=== PATIENT | female | born 1995 | race Caucasian/White ===

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

== ENCOUNTER 2017-03-15 12:17 | Emergency (ER) | payer OTHER ==
[2017-03-15 13:44] LABS: ABS Basophils 0.1 10^3/ul (0-0.2); ABS Eosinophils 0.1 10^3/ul (0-0.6); ABS Lymphocytes 3.1 10^3/ul (1.0-4.8); ABS Monocytes 0.7 10^3/ul (0-0.8); ABS Neutrophils 6.5 10^3/ul (1.5-7.7); ABS Nucleated RBC 0 10^3/ul; Eosinophil % 0.5 % (0-6); Hematocrit 40 % (35-47); Hemoglobin 13.1 g/dl (12.0-16.0); Lymphocyte % 29.7 % (25-47); Mean Corpuscular HGB Conc 33 g/dl (31-36); Mean Corpuscular Hemoglobin 27 pg (27-31); Mean Corpuscular Volume 82 fL (80-97); Mean Platelet Volume 7 um3 (7.4-10.4); Nucleated Red Blood Cells % 0; Platelet Count 383 10^3/ul (150-450); Red Blood Count 4.88 10^6/ul (4.0-5.4); Red Cell Distribution Width 15 % (10.5-15); White Blood Count 10.4 10^3/ul (3.5-10.8)
[2017-03-15 13:58] LABS: Urine Appearance Clear; Urine Blood Negative (Negative); Urine Color Straw; Urine Ketones Negative (Negative); Urine Protein Negative (Negative); Urine Specific Gravity 1.004 (1.010-1.030); Urine Urobilinogen Negative (Negative)
[2017-03-15 14:04] LABS: EGFR Non-African American 118.3 (>60)
--- NOTE | 2017-03-15 14:50 | RAD ---
INDICATION: Chest pain. COMPARISON: Comparison is made with a prior chest x-ray study from September 25, 2016. TECHNIQUE: Dual-energy PA and lateral views of the chest were obtained. FINDINGS: The heart is within normal limits in size. Mediastinal and hilar contours appear within normal limits. The lungs are clear. No pleural effusion is present. IMPRESSION: NO EVIDENCE FOR ACTIVE CARDIOPULMONARY DISEASE.
[2017-03-15] MEDS ORDERED: Acetaminophen TAB* 325 MG PO ONE (16:06)
[2017-03-15 16:30] VITALS: BP 134/65
--- NOTE | 2017-03-16 10:28 | ED ---
Radha Chatman Gabriel scribed for Eb Feliciano MD on 03/15/17 at 1306 . HPI Chest Pain - HPI Summary HPI Summary: This patient is a 22 year old F presenting to [facility] accompanied by her mother with a chief complaint of CP that began a week ago and is worse today. The patient rates the sharp pain 5/10 in severity and located on the left side of her chest. Patient reports SOB and calf pain. The SOB is worse with exertion. The pain began while the patient was smoking an E cigarette. She is not on oral BC. - History of Current Complaint Chief Complaint: EDChestWallPain Time Seen by Provider: 03/15/17 12:54 Hx Obtained From: Patient Hx Last Menstrual Period: 09/15/16 Onset/Duration: Started Weeks Ago - 1, Still Present Timing: Constant Initial Severity: Mild Current Severity: Moderate Pain Intensity: 5 Pain Scale Used: 0-10 Numeric Chest Pain Location: Diffuse Chest Pain Radiates: No Aggravating Factor(s): Exertion Associated Signs and Symptoms: Positive: Chest Pain, Shortness of Breath, Calf Pain/Swelling - Allergy/Home Medications Allergies/Adverse Reactions: Allergies Allergy/AdvReac Type Severity Reaction Status Date / Time No Known Allergies Allergy Verified 09/19/16 12:06 PMH/Surg Hx/FS Hx/Imm Hx Endocrine/Hematology History: Denies: Hx Anticoagulant Therapy, Hx Diabetes Cardiovascular History: Denies: Hx Congenital Heart Disease, Hx Hypertension Respiratory History: Reports: Hx Pulmonary Embolism Denies: Hx Pleural Effusion GI History: Denies: Hx Crohn's Disease History: Denies: Hx Renal Disease Musculoskeletal History: Denies: Hx Gout, Hx Scoliosis Sensory History: Reports: Hx Contacts or Glasses Denies: Hx Hearing Aid Opthamlomology History: Reports: Hx Contacts or Glasses Neurological History: Denies: Hx Headaches Infectious Disease History: No Infectious Disease History: Denies: Traveled Outside the [place] in Last 30 Days - Family History Known Family History: Positive: Blood Disorder - blood clots Negative: Cardiac Disease, Hypertension, Diabetes - Social History Lives: With Family Alcohol Use: None Substance Use Type: Reports: None Smoking Status (MU): Former Smoker Type: Cigarettes Amount Used/How Often: 1/2 -1 ppd Length of Time of Smoking/Using Tobacco: since age 18 Have You Smoked in the Last Year: Yes Review of Systems Positive: Chest Pain Positive: Shortness Of Breath Positive: Other - LE pain All Other Systems Reviewed And Are Negative: Yes Physical Exam - Summary Physical Exam Summary: VITAL SIGNS: Reviewed. GENERAL: Patient is a well-developed and nourished female who is lying comfortable in the stretcher. Patient is not in any acute respiratory distress. HEAD AND FACE: No signs of trauma. No ecchymosis, hematomas or skull depressions. No sinus tenderness. EYES: PERRLA, EOMI x 2, No injected conjunctiva, no nystagmus. EARS: Hearing grossly intact. Ear canals and tympanic membranes are within normal limits. MOUTH: Oropharynx within normal limits. NECK: Supple, trachea is midline, no adenopathy, no JVD, no carotid bruit, no c- spine tenderness, neck with full ROM. CHEST: Symmetric, no tenderness at palpation LUNGS: Clear to auscultation bilaterally. No wheezing or crackles. CVS: Regular rate and rhythm, S1 and S2 present, no murmurs or gallops appreciated. ABDOMEN: Soft, non-tender. No signs of distention. No rebound no guarding, and no masses palpated. Bowel sounds are normal. EXTREMITIES: FROM in all major joints, no edema, no cyanosis or clubbing. NEURO: Alert and oriented x 3. No acute neurological deficits. Speech is normal and follows commands. SKIN: Dry and warm Triage Information Reviewed: Yes Vital Signs On Initial Exam: Initial Vitals Temp Pulse Resp BP Pulse Ox 97.6 F 101 20 131/84 99 03/15/17 12:18 03/15/17 12:18 03/15/17 12:18 03/15/17 12:18 03/15/17 12:18 Vital Signs Reviewed: Yes Diagnostics - Vital Signs Vital Signs Temp Pulse Resp BP Pulse Ox 03/15/17 12:18 97.6 F 101 20 131/84 99 - Laboratory Lab Results: Lab Results 03/15/17 03/15/17 03/15/17 Range/Units 13:18 13:18 13:18 WBC 10.4 (3.5-10.8) 10^3/ul RBC 4.88 (4.0-5.4) 10^6/ul Hgb 13.1 (12.0-16.0) g/dl Hct 40 (35-47) % MCV 82 (80-97) fL MCH 27 (27-31) pg MCHC 33 (31-36) g/dl RDW 15 (10.5-15) % Plt Count 383 (150-450) 10^3/ul MPV 7 L (7.4-10.4) um3 Neut % (Auto) 62.9 (38-83) % Lymph % (Auto) 29.7 (25-47) % Toole % (Auto) 6.4 (1-9) % Eos % (Auto) 0.5 (0-6) % Baso % (Auto) 0.5 (0-2) % Absolute Neuts (auto) 6.5 (1.5-7.7) 10^3/ul Absolute Lymphs (auto) 3.1 (1.0-4.8) 10^3/ul Absolute Monos (auto) 0.7 (0-0.8) 10^3/ul Absolute Eos (auto) 0.1 (0-0.6) 10^3/ul Absolute Basos (auto) 0.1 (0-0.2) 10^3/ul Absolute Nucleated RBC 0 10^3/ul Nucleated RBC % 0 D-Dimer, Quantitative (Less Than 230) ng/mL Sodium 136 (133-145) mmol/L Potassium 3.8 (3.5-5.0) mmol/L Chloride 104 (101-111) mmol/L Carbon Dioxide 25 (22-32) mmol/L Anion Gap 7 (2-11) mmol/L BUN 12 (6-24) mg/dL Creatinine 0.64 (0.51-0.95) mg/dL Est GFR ( Amer) 152.1 (>60) Est GFR (Non-Af Amer) 118.3 (>60) BUN/Creatinine Ratio 18.8 (8-20) Glucose 109 H (70-100) mg/dL Lactic Acid (0.5-2.0) mmol/L Calcium 9.6 (8.6-10.3) mg/dL Magnesium 1.9 (1.9-2.7) mg/dL Total Bilirubin 0.60 (0.2-1.0) mg/dL AST 21 (13-39) U/L ALT 19 (7-52) U/L Alkaline Phosphatase 78 (34-104) U/L Total Creatine Kinase 48 (10-223) U/L CK-MB (CK-2) 1.0 (0.6-6.3) ng/mL Troponin I 0.00 (<0.04) ng/mL B-Natriuretic Peptide 30 ( - 100) pg/mL Total Protein 6.9 (6.4-8.9) g/dL Albumin 4.0 (3.2-5.2) g/dL Globulin 2.9 (2-4) g/dL Albumin/Globulin Ratio 1.4 (1-3) TSH (0.34-5.60) mcIU/mL Thyroxine (T4) (6.09-12.23) mcg/mL Beta HCG, Quant 0.60 mIU/mL Urine Color Urine Appearance Urine pH (5-9) Ur Specific Omro (1.010-1.030) Urine Protein (Negative) Urine Ketones (Negative) Urine Blood (Negative) Urine Nitrate (Negative) Urine Bilirubin (Negative) Urine Urobilinogen (Negative) Ur Leukocyte Esterase (Negative) Urine Glucose (Negative) 03/15/17 03/15/17 03/15/17 Range/Units 13:18 13:18 13:44 WBC (3.5-10.8) 10^3/ul RBC (4.0-5.4) 10^6/ul Hgb (12.0-16.0) g/dl Hct (35-47) % MCV (80-97) fL MCH (27-31) pg MCHC (31-36) g/dl RDW (10.5-15) % Plt Count (150-450) 10^3/ul MPV (7.4-10.4) um3 Neut % (Auto) (38-83) % Lymph % (Auto) (25-47) % Toole % (Auto) (1-9) % Eos % (Auto) (0-6) % Baso % (Auto) (0-2) % Absolute Neuts (auto) (1.5-7.7) 10^3/ul Absolute Lymphs (auto) (1.0-4.8) 10^3/ul Absolute Monos (auto) (0-0.8) 10^3/ul Absolute Eos (auto) (0-0.6) 10^3/ul Absolute Basos (auto) (0-0.2) 10^3/ul Absolute Nucleated RBC 10^3/ul Nucleated RBC % D-Dimer, Quantitative < 200 (Less Than 230) ng/mL Sodium (133-145) mmol/L Potassium (3.5-5.0) mmol/L Chloride (101-111) mmol/L Carbon Dioxide (22-32) mmol/L Anion Gap (2-11) mmol/L BUN (6-24) mg/dL Creatinine (0.51-0.95) mg/dL Est GFR ( Amer) (>60) Est GFR (Non-Af Amer) (>60) BUN/Creatinine Ratio (8-20) Glucose (70-100) mg/dL Lactic Acid 0.9 (0.5-2.0) mmol/L Calcium (8.6-10.3) mg/dL Magnesium (1.9-2.7) mg/dL Total Bilirubin (0.2-1.0) mg/dL AST (13-39) U/L ALT (7-52) U/L Alkaline Phosphatase (34-104) U/L Total Creatine Kinase (10-223) U/L CK-MB (CK-2) (0.6-6.3) ng/mL Troponin I (<0.04) ng/mL B-Natriuretic Peptide ( - 100) pg/mL Total Protein (6.4-8.9) g/dL Albumin (3.2-5.2) g/dL Globulin (2-4) g/dL Albumin/Globulin Ratio (1-3) TSH 1.64 (0.34-5.60) mcIU/mL Thyroxine (T4) 6.60 (6.09-12.23) mcg/mL Beta HCG, Quant mIU/mL Urine Color Urine Appearance Urine pH (5-9) Ur Specific Omro (1.010-1.030) Urine Protein (Negative) Urine Ketones (Negative) Urine Blood (Negative) Urine Nitrate (Negative) Urine Bilirubin (Negative) Urine Urobilinogen (Negative) Ur Leukocyte Esterase (Negative) Urine Glucose (Negative) 03/15/17 Range/Units 13:46 WBC (3.5-10.8) 10^3/ul RBC (4.0-5.4) 10^6/ul Hgb (12.0-16.0) g/dl Hct (35-47) % MCV (80-97) fL MCH (27-31) pg MCHC (31-36) g/dl RDW (10.5-15) % Plt Count (150-450) 10^3/ul MPV (7.4-10.4) um3 Neut % (Auto) (38-83) % Lymph % (Auto) (25-47) % Toole % (Auto) (1-9) % Eos % (Auto) (0-6) % Baso % (Auto) (0-2) % Absolute Neuts (auto) (1.5-7.7) 10^3/ul Absolute Lymphs (auto) (1.0-4.8) 10^3/ul Absolute Monos (auto) (0-0.8) 10^3/ul Absolute Eos (auto) (0-0.6) 10^3/ul Absolute Basos (auto) (0-0.2) 10^3/ul Absolute Nucleated RBC 10^3/ul Nucleated RBC % D-Dimer, Quantitative (Less Than 230) ng/mL Sodium (133-145) mmol/L Potassium (3.5-5.0) mmol/L Chloride (101-111) mmol/L Carbon Dioxide (22-32) mmol/L Anion Gap (2-11) mmol/L BUN (6-24) mg/dL Creatinine (0.51-0.95) mg/dL Est GFR ( Amer) (>60) Est GFR (Non-Af Amer) (>60) BUN/Creatinine Ratio (8-20) Glucose (70-100) mg/dL Lactic Acid (0.5-2.0) mmol/L Calcium (8.6-10.3) mg/dL Magnesium (1.9-2.7) mg/dL Total Bilirubin (0.2-1.0) mg/dL AST (13-39) U/L ALT (7-52) U/L Alkaline Phosphatase (34-104) U/L Total Creatine Kinase (10-223) U/L CK-MB (CK-2) (0.6-6.3) ng/mL Troponin I (<0.04) ng/mL B-Natriuretic Peptide ( - 100) pg/mL Total Protein (6.4-8.9) g/dL Albumin (3.2-5.2) g/dL Globulin (2-4) g/dL Albumin/Globulin Ratio (1-3) TSH (0.34-5.60) mcIU/mL Thyroxine (T4) (6.09-12.23) mcg/mL Beta HCG, Quant mIU/mL Urine Color Straw Urine Appearance Clear Urine pH 7.0 (5-9) Ur Specific Omro 1.004 L (1.010-1.030) Urine Protein Negative (Negative) Urine Ketones Negative (Negative) Urine Blood Negative (Negative) Urine Nitrate Negative (Negative) Urine Bilirubin Negative (Negative) Urine Urobilinogen Negative (Negative) Ur Leukocyte Esterase Negative (Negative) Urine Glucose Negative (Negative) Result Diagrams: 03/15/17 13:18 03/15/17 13:18 Lab Statement: Any lab studies that have been ordered have been reviewed, and results considered in the medical decision making process. - Radiology CXR Radiology Interpretation Completed By: Radiologist - NO EVIDENCE FOR ACTIVE CARDIOPULMONARY DISEASE. ED physician has reviewed this radiology report. - EKG 12:25 Cardiac Rate: NL EKG Rhythm: Sinus Rhythm - at 80BPM EKG Interpretation: normal axis, no ST elevations Re-Evaluation - Re-Evaluation First Eval Re-Evaluation Time: 16:09 Change: Improved Comment: The patient is feeling better and reports no chest pain. Chest Pain Course/Dx - Course Assessment/Plan: This patient is a 22 year old F presenting to [facility] accompanied by her mother with a chief complaint of CP that began a week ago and is worse today. The patient rates the sharp pain 5/10 in severity and located on the left side of her chest. Patient reports SOB and calf pain. The SOB is worse with exertion. The pain began while the patient was smoking an E cigarette. She is not on oral BC. Test results with no significant abnormalities. UA negative for UTI and d dimer is negative for an acute PE. The patient was given Tylenol and the symptoms resolved. The patient has history of PE and the patient is taking Xarelto therefore I believe she has atypical chest pain. Patient was observed for 4 hours and symptoms did not return so she will be discharged. Patient is hemodynamically stable and alert and oriented x3 - Chest Pain Differential Diagnosis/HQI/PQRI: Acute NH, ACS, Angina, CHF, Chest Wall, GI Disease, Lower Respiratory Infection, Pulmonary Edema - Diagnoses Provider Diagnoses: Atypical chest pain Discharge - Discharge Plan Condition: Stable Disposition: HOME Patient Education Materials: Chest Wall Pain (ED) Referrals: Amy Woody RN [Primary Care Provider] - 4 Days Additional Instructions: RETURN TO EMERGENCY DEPARTMENT FOR ANY NEW OR WORSENING SYMPTOMS The documentation as recorded by the Radha mike Gabriel accurately reflects the service I personally performed and the decisions made by , Eb Feliciano MD.
== END 2017-03-15 16:30 | disposition home or self-care (01) ==
LOC: ED 12:17
DX: R07.89 Other chest pain (principal); F17.210 Nicotine dependence, cigarettes, uncomplicated; F17.290 Nicotine dependence, other tobacco product, uncomplicated; Z86.711 Personal history of pulmonary embolism; Z79.01 Long term (current) use of anticoagulants
CPT/HCPCS: 36415; 71046; 80053; 81003; 82550; 82553; 83605; 83735; 83880; 84436; 84443; 84484; 84702; 85025; 85379; 93005; 99282; A9270-GY

== ENCOUNTER 2017-09-08 11:56 | Emergency (ER) | payer OTHER ==
[2017-09-08 12:52] LABS: ABS Basophils 0 10^3/ul (0-0.2); ABS Eosinophils 0 10^3/ul (0-0.6); ABS Lymphocytes 2.8 10^3/ul (1.0-4.8); ABS Monocytes 0.6 10^3/ul (0-0.8); ABS Neutrophils 5.9 10^3/ul (1.5-7.7); ABS Nucleated RBC 0 10^3/ul; Eosinophil % 0.3 % (0-6); Hematocrit 42 % (35-47); Hemoglobin 13.8 g/dl (12.0-16.0); Lymphocyte % 30.3 % (25-47); Mean Corpuscular HGB Conc 33 g/dl (31-36); Mean Corpuscular Hemoglobin 27 pg (27-31); Mean Corpuscular Volume 82 fL (80-97); Mean Platelet Volume 7.3 um3 (7.4-10.4); Nucleated Red Blood Cells % 0; Platelet Count 449 10^3/ul (150-450); Red Blood Count 5.12 10^6/ul (4.00-5.40); Red Cell Distribution Width 14 % (10.5-15); White Blood Count 9.4 10^3/ul (3.5-10.8)
--- NOTE | 2017-09-08 13:32 | ED ---
HPI Chest Pain - HPI Summary HPI Summary: This is rashid Zamarripa documenting for Dr. Eb Feliciano MD. Pt is a 22 y/o F who presents to ED c/o SOB and chest pain. The chest pain started approximately 6 months ago which is when she first visited the ED. The pain has not gone away and has been intermittent, as well as the SOB. Right now she is not in any pain, but at triage she rated her pain a 5/10 in severity. The pain is present on the left side of chest. Lying on either side exacerbates the pain per nurses report. 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 Denies nausea/vomiting and palpitations. Notes an irregular menstrual cycle, with LNMP 1.5 months ago. No possibility of , took a test yesterday. Pt has been off her medications for her pulmonary embolism for 3 months. Does not smoke. - History of Current Complaint Chief Complaint: EDChestPainROMI Time Seen by Provider: 09/08/17 12:38 Hx Obtained From: Patient Onset/Duration: Started Weeks Ago Timing: Intermittent Current Severity: Moderate Pain Intensity: 5 Pain Scale Used: 0-10 Numeric Aggravating Factor(s): Position - Lying on either side Associated Signs and Symptoms: Positive: Chest Pain, Shortness of Breath - Allergy/Home Medications Allergies/Adverse Reactions: Allergies Allergy/AdvReac Type Severity Reaction Status Date / Time No Known Allergies Allergy Verified 09/08/17 11:59 Home Medications: Home Medications Ergocalciferol (Vitamin D2) [Vitamin D2] 1 cap PO DAILY 09/08/17 [History Confirmed 09/08/17] PMH/Surg Hx/FS Hx/Imm Hx Endocrine/Hematology History: Denies: Hx Anticoagulant Therapy, Hx Diabetes Cardiovascular History: Denies: Hx Congenital Heart Disease, Hx Hypertension Respiratory History: Reports: Hx Pulmonary Embolism Denies: Hx Pleural Effusion GI History: Denies: Hx Crohn's Disease History: Denies: Hx Renal Disease Musculoskeletal History: Denies: Hx Gout, Hx Scoliosis Sensory History: Reports: Hx Contacts or Glasses Denies: Hx Hearing Aid Opthamlomology History: Reports: Hx Contacts or Glasses Neurological History: Denies: Hx Headaches Infectious Disease History: No Infectious Disease History: Denies: Traveled Outside the [place] in Last 30 Days - Family History Known Family History: Positive: Blood Disorder - blood clots Negative: Cardiac Disease, Hypertension, Diabetes - Social History Alcohol Use: None Substance Use Type: Reports: None Smoking Status (MU): Former Smoker Type: Cigarettes Amount Used/How Often: 1/2 -1 ppd Length of Time of Smoking/Using Tobacco: since age 18 Have You Smoked in the Last Year: Yes Review of Systems Positive: Chest Pain. Negative: Palpitations Positive: Shortness Of Breath Negative: Vomiting, Nausea All Other Systems Reviewed And Are Negative: Yes Physical Exam - Summary Physical Exam Summary: VITAL SIGNS: Reviewed. GENERAL: Patient is a well-developed and nourished female who is lying comfortable in the stretcher. Patient is not in any acute respiratory distress. HEAD AND FACE: No signs of trauma. No ecchymosis, hematomas or skull depressions. No sinus tenderness. EYES: PERRLA, EOMI x 2, No injected conjunctiva, no nystagmus. EARS: Hearing grossly intact. Ear canals and tympanic membranes are within normal limits. MOUTH: Oropharynx within normal limits. NECK: Supple, trachea is midline, no adenopathy, no JVD, no carotid bruit, no c- spine tenderness, neck with full ROM. CHEST: Symmetric. Left side chest pain that's reproducible. LUNGS: Clear to auscultation bilaterally. No wheezing or crackles. CVS: Regular rate and rhythm, S1 and S2 present, no murmurs or gallops appreciated. ABDOMEN: Soft, non-tender. No signs of distention. No rebound no guarding, and no masses palpated. Bowel sounds are normal. EXTREMITIES: FROM in all major joints, no edema, no cyanosis or clubbing. NEURO: Alert and oriented x 3. No acute neurological deficits. Speech is normal and follows commands. SKIN: Dry and warm Triage Information Reviewed: Yes Vital Signs On Initial Exam: Initial Vitals Temp Pulse Resp BP Pulse Ox 97.6 F 97 14 120/82 97 09/08/17 12:00 09/08/17 12:00 09/08/17 12:00 09/08/17 12:00 09/08/17 12:00 Vital Signs Reviewed: Yes Diagnostics - Vital Signs Vital Signs Temp Pulse Resp BP Pulse Ox 09/08/17 13:10 78 20 133/83 97 09/08/17 13:00 87 14 97 09/08/17 12:50 98 09/08/17 12:39 74 21 96 09/08/17 12:00 97.6 F 97 14 120/82 97 - Laboratory Lab Results: Lab Results 09/08/17 09/08/17 09/08/17 Range/Units 12:47 12:47 12:47 WBC 9.4 (3.5-10.8) 10^3/ul RBC 5.12 (4.00-5.40) 10^6/ul Hgb 13.8 (12.0-16.0) g/dl Hct 42 (35-47) % MCV 82 (80-97) fL MCH 27 (27-31) pg MCHC 33 (31-36) g/dl RDW 14 (10.5-15) % Plt Count 449 (150-450) 10^3/ul MPV 7.3 L (7.4-10.4) um3 Neut % (Auto) 62.5 (38-83) % Lymph % (Auto) 30.3 (25-47) % Cameron % (Auto) 6.5 (0-7) % Eos % (Auto) 0.3 (0-6) % Baso % (Auto) 0.4 (0-2) % Absolute Neuts (auto) 5.9 (1.5-7.7) 10^3/ul Absolute Lymphs (auto) 2.8 (1.0-4.8) 10^3/ul Absolute Monos (auto) 0.6 (0-0.8) 10^3/ul Absolute Eos (auto) 0 (0-0.6) 10^3/ul Absolute Basos (auto) 0 (0-0.2) 10^3/ul Absolute Nucleated RBC 0 10^3/ul Nucleated RBC % 0 APTT 36.7 H (26.0-36.3) seconds D-Dimer, Quantitative < 200 (Less Than 230) ng/mL Sodium 137 (135-145) mmol/L Potassium 4.0 (3.5-5.0) mmol/L Chloride 104 (101-111) mmol/L Carbon Dioxide 27 (22-32) mmol/L Anion Gap 6 (2-11) mmol/L BUN 10 (6-24) mg/dL Creatinine 0.76 (0.51-0.95) mg/dL Est GFR ( Amer) 117.4 (>60) Est GFR (Non-Af Amer) 97.0 (>60) BUN/Creatinine Ratio 13.2 (8-20) Glucose 89 (70-100) mg/dL Calcium 9.8 (8.6-10.3) mg/dL Total Bilirubin 0.80 (0.2-1.0) mg/dL AST 20 (13-39) U/L ALT 19 (7-52) U/L Alkaline Phosphatase 101 (34-104) U/L Total Creatine Kinase 50 (10-223) U/L CK-MB (CK-2) 0.7 (0.6-6.3) ng/mL Troponin I 0.00 (<0.04) ng/mL B-Natriuretic Peptide ( - 100) pg/mL Total Protein 7.8 (6.4-8.9) g/dL Albumin 4.5 (3.2-5.2) g/dL Globulin 3.3 (2-4) g/dL Albumin/Globulin Ratio 1.4 (1-3) TSH Pending Beta HCG, Quant < 0.60 mIU/mL 09/08/17 Range/Units 12:47 WBC (3.5-10.8) 10^3/ul RBC (4.00-5.40) 10^6/ul Hgb (12.0-16.0) g/dl Hct (35-47) % MCV (80-97) fL MCH (27-31) pg MCHC (31-36) g/dl RDW (10.5-15) % Plt Count (150-450) 10^3/ul MPV (7.4-10.4) um3 Neut % (Auto) (38-83) % Lymph % (Auto) (25-47) % Cameron % (Auto) (0-7) % Eos % (Auto) (0-6) % Baso % (Auto) (0-2) % Absolute Neuts (auto) (1.5-7.7) 10^3/ul Absolute Lymphs (auto) (1.0-4.8) 10^3/ul Absolute Monos (auto) (0-0.8) 10^3/ul Absolute Eos (auto) (0-0.6) 10^3/ul Absolute Basos (auto) (0-0.2) 10^3/ul Absolute Nucleated RBC 10^3/ul Nucleated RBC % APTT (26.0-36.3) seconds D-Dimer, Quantitative (Less Than 230) ng/mL Sodium (135-145) mmol/L Potassium (3.5-5.0) mmol/L Chloride (101-111) mmol/L Carbon Dioxide (22-32) mmol/L Anion Gap (2-11) mmol/L BUN (6-24) mg/dL Creatinine (0.51-0.95) mg/dL Est GFR ( Amer) (>60) Est GFR (Non-Af Amer) (>60) BUN/Creatinine Ratio (8-20) Glucose (70-100) mg/dL Calcium (8.6-10.3) mg/dL Total Bilirubin (0.2-1.0) mg/dL AST (13-39) U/L ALT (7-52) U/L Alkaline Phosphatase (34-104) U/L Total Creatine Kinase (10-223) U/L CK-MB (CK-2) (0.6-6.3) ng/mL Troponin I (<0.04) ng/mL B-Natriuretic Peptide 20 ( - 100) pg/mL Total Protein (6.4-8.9) g/dL Albumin (3.2-5.2) g/dL Globulin (2-4) g/dL Albumin/Globulin Ratio (1-3) TSH Beta HCG, Quant mIU/mL Result Diagrams: 09/08/17 12:47 09/08/17 12:47 Lab Statement: Any lab studies that have been ordered have been reviewed, and results considered in the medical decision making process. - Radiology CXR Radiology Interpretation Completed By: Radiologist - 12:38. IMPRESSION:No evidence for acute intrathoracic disease. ED Physician reviewed this report. - EKG 12:48 Cardiac Rate: NL - 79 bpm EKG Rhythm: Sinus Rhythm EKG Interpretation: Normal axis, No ST elevation EKG Comparison: No Significant Change - Similar to EKG done on 03/15/17 Chest Pain Course/Dx - Course Assessment/Plan: This patient is a 22-year-old female with past medical history significant for PE presents to the emergency department with a chief complaint of having chest pain and shortness of breath since February. The pain is sharp, reproducible to palpation during the physical exam. In the ED course the patients symptoms are not severe she was only 1 out of 10 at palpation. She denies any shortness of breath,. Physical sounds without any significant abnormality. D-dimer is less than 200, troponin 0.00. The patient declined anything for pain since the pain is resolved. Chest x-ray impression: No acute cuddy thoracic pathology. EKG shows a sinus rhythm with no ST elevations. Since the d-dimer is negative, she is not hypoxic, and she is not tachycardic have no suspicion for a PE. I do not suspect patient has acute coronary syndrome since the troponin is also negative and the EKG shows last elevations. The etiology for the chest pain is unclear however I believe the patient has musculoskeletal pain. Therefore the patient will be discharged home with follow -up with primary care physician. Patient is hemodynamically stable alert and oriented 3. - Diagnoses Provider Diagnoses: Atypical chest pain Discharge - Sign-Out/Discharge Documenting (check all that apply): Patient Departure - Discharge - Discharge Plan Condition: Stable Disposition: HOME Prescriptions: Naproxen [Naproxen 500 mg tab] 500 mg PO BID PRN #30 tablet PRN Reason: Pain Patient Education Materials: Chest Pain (ED) Referrals: Tiburcio MYERSP,Amy [Primary Care Provider] - 3 Days Additional Instructions: RETURN TO ED FOR ANY NEW OR WORSENING SYMPTOMS.
--- NOTE | 2017-09-08 14:17 | RAD ---
Indication: Chest pain. Shortness of breath. Comparison: March 15, 2017 Technique: Upright AP 1320 hours Report: Clear lungs and pleural spaces. Negative for pneumothorax. The heart, pulmonary vasculature, and mediastinal contours are unremarkable. Unremarkable osseous structures and soft tissue contours. IMPRESSION: #. No evidence for acute intrathoracic disease.
[2017-09-08 14:26] VITALS: BP 123/104
== END 2017-09-08 14:25 | disposition home or self-care (01) ==
LOC: ED 11:56
DX: R07.89 Other chest pain (principal); R06.02 Shortness of breath; Z87.891 Personal history of nicotine dependence
CPT/HCPCS: 36415; 71045; 80053; 82550; 82553; 83880; 84443; 84484; 84702; 85025; 85379; 85730; 93005; 99283

== ENCOUNTER 2018-01-27 10:46 | Emergency (ER) | payer OTHER ==
--- OUTSIDE RECORDS SUMMARY | 2018-01-27 10:51 | XMS REPORT | Continuity of Care Document ---
:1995 External Reference #:[id number] Author Name Jennifer Lopes Care Team Providers Name Role Phone Angela Solis NP Primary Care Physician Unavailable Payers Type Date Identification Numbers Payment Provider Subscriber Effective: 2010 Policy Number: [id number] [facility] Iza Byrd PayID: [id number] [address] [place] [address] Effective: 2010 Policy Number: [id number] Medicaid ID Iza [place] PayID: [id number] [address] [place] [address] Advance Directives Description No Information Available Problems Description No Active Problems Family History Date Family Member(s) Problem(s) Comments Father due to Liver Disease () Father due to Alcoholism () Mother A&W Paternal Grandfather due to Cancer () Maternal Grandfather due to Melanoma () Social History Type Date Description Comments Sex Unknown Education Highest level completed, 12th grade Marital Status Single Lives With Mother Cigarette Use Former Cigarette Smoker quit in 2017 ETOH Use Does Not Drink Alcohol Recreational Drug Use Does Not Use Drugs Tobacco Use Start: Unknown Patient has never smoked Exercise Type/Frequency Exercises sporadically Seat Belt/Car Seat Always uses seat belt Currently Active Patient is currently sexually active STD's No STD History Allergies, Adverse Reactions, Alerts Description No Known Drug Allergies Medications Medication Date Status Form Strength Qnty SIG Indications Ordering Provider Enoxaparin Sodium 01/14 Active Solution 40mg/0.4M 60syr inject Phael L obie 0.4ml MD Radha sq daily Active Tablets 1 by Unknown /0000 mouth every day Effexor XR Active Caps ER 75mg 1 by Unknown /0000 24HR mouth every day at night No Active 08/30 Hx Unknown Medications /2014 - 08/30 Medroxyprogesterone 08/30 Hx Suspension 150mg/ml 1unit for use Jett ARomulo ayan steeleu Iraj Robison MRowdy 12/23 to office for injecti on. Escitalopram Oxalate 00/00 Hx Tablets 10mg Unknown /0000 - 12/23 Immunizations CPT Code Status Date Vaccine Lot # [id number] Given 12/17/2017 Influenza Vaccine Quadrivalent Preser/Antibiotic [id number] Free Im Use Vital Signs Date Vital Result Comment 12/17/2017 1:22pm BP Systolic 122 mmHg BP Diastolic 70 mmHg Height 64.5 inches 5'4.50" Weight 232.00 lb BMI (Body Mass Index) 39.2 kg/m2 1 Parity 0 01/04/2016 3:07pm BP Systolic 124 mmHg BP Diastolic 70 mmHg Height 64.5 inches 5'4.50" Weight 204.00 lb BMI (Body Mass Index) 34.5 kg/m2 0 Parity 0 08/30/2014 1:31pm BP Systolic 102 mmHg BP Diastolic 76 mmHg Height 64.5 inches 5'4.50" Weight 165.00 lb BMI (Body Mass Index) 27.9 kg/m2 Last Menstrual Period 1237196 0 Parity 0 Results Test Date Facility Test Result H/L Range Note Cardiolipin AB 12/23/2017 [facility] Cardiolipin AB (Iga) <11 APL <=11 1 Igg,Iga,Igm Cardiolipin AB (Igg) <14 GPL <=14 2 Cardiolipin AB (Igm) <12 MPL <=12 3 Factor V Leiden Mutation 12/23/2017 [facility] Factor V (Leiden) Mutation see note 4 Interpretation see note 5 Reviewer see note 6 Prothrombin Factor II 12/23/2017 [facility] Prothrombin Gene Analysis see note 7 26630S>A Mut Nidia Interpretation see note 8 Reviewer see note 9 MTHFR,Dna Mutation 12/23/2017 [facility] MTHFR,Dna Mutation see note Abnormal 10 Analysis Interpretation see note 11 Reviewer see note 12 Lupus Anticoag 12/23/2017 [facility] Lupus Anticoagulant see note 13 W/RFX,Atiii,Protein C&S PTT-LA Screen 42 sec High <=40 DRVVT Screen 48 sec High <=45 DRVVT Mix Interpretation see note 14 Antithrombin III Activity 91 %activity 80-120 Protein C,Activity SEE NOTE 15 Protein S,Activity 58 % Low 60-140 16 Laboratory test finding 12/23/2017 [facility] Hexagonal Phase Negative Negative Confirm (Reflex) DRVVT Confirmation (Reflex) Positive Abnormal Negative DRVVT 1:1 Mix CORRECTED Corrected PNL No 12/19/2017 [facility] Rubella Screen [place] [address] [phone] Hemoglobin A1c 5.7 % High 4.0-5.6 17 Hepatitis B Surface Ag Nonreactive Nonreactive 18 Syphillis Igg W/Reflex RPR Nonreactive Nonreactive 19 CBC With No 12/19/2017 [facility] White Blood 12.9 10^3/uL High 3.5-10.8 [place] [address] Count [phone] Red Blood Count 4.90 10^6/uL N 4.00-5.40 Hemoglobin 13.1 g/dL N 12.0-16.0 Hematocrit 40 % N 35-47 Mean Corpuscular Volume 82 fL N 80-97 Mean Corpuscular Hemoglobin 27 pg N 27-31 Mean Corpuscular HGB Conc 33 g/dL N 31-36 Red Cell Distribution Width 14 % N 10.5-15 Platelet Count 417 10^3/uL N 150-450 Mean Platelet Volume 7.4 um3 N 7.4-10.4 Type And Screen 12/19/2017 [facility] Patient [place] [address] [phone] Antibody Screen NEGATIVE HIV 1/2 AB 12/19/2017 [facility] HIV 1 2 Nonreactive Nonreactive 20 [place] [address] Antibody [phone] Lead 12/19/2017 [facility] Lead,Venous, < 1.0 g/dL 0.0-4.9 21 [place] [address] B [phone] Venous/Capillary Venous Submitting Laboratory Phone [phone] Laboratory test 12/19/2017 [facility] TSH 1.11 mcIU/mL N 0.34- 5.60 [place] [address] [phone] T4 Free 0.79 ng/dL N 0.61-1.12 Toxoplasma Igg 12/19/2017 [facility] Toxoplasma Positive Abnormal Negative & [place] [address] IgG Antibody [phone] Toxoplasma IgG Antibody Index 101 IU/mL 23 Toxoplasma IgM Antibody Negative Negative 24 Urine Culture And 12/17/2017 [facility] Urine Culture SEE RESULT 25 [place] [address] BELOW [phone] 1 Value Interpretation ----- < or=11 Negative 12 - 20 Indeterminate 21 - 80 Low to Medium Positive > 80 High Positive The antiphospholipid antibody syndrome (APS) is a clinical-pathologic correlation that includes a clinical event (e.g. thrombosis, loss, thrombocytopenia) and presistent positive antiphospholipid antibodies (IgM or IgG AGUSTIN >40 MPL/GPL, IgM or IgG anti-b2GPI antibodies or a lupus anticoagulant). The IgA isotype has been implicated in smaller studies, but have not yet been incorporated into the APS criteria. International consensus guidelines suggest waiting at least 12 weeks before retesting to confirm antibody persistence. Reference J Thromb Haemost 2006: 4; 295 2 Value Interpretation ----- < or=14 Negative 15 - 20 Indeterminate 21 - 80 Low to Medium Positive > 80 High Positive The antiphospholipid antibody syndrome (APS) is a clinical-pathologic correlation that includes a clinical event (e.g. thrombosis, loss, thrombocytopenia) and persistent positive antiphospholipid antibodies (IgM or IgG AGUSTIN >40 MPL/GPL IgM or IgG anti-b2GPI antibodies or a lupus anticoagulant). The IgA isotype has been implicated in smaller studies, but have not yet been incorporated into the APS criteria. International consensus guidelines suggest waiting at least 12 weeks before retesting to confirm antibody persistence. Reference J Thromb Haemost 2006: 4; 295 3 Value Interpretation ----- < or=12 Negative 13 - 20 Indeterminate 21 - 80 Low to Medium Positive > 80 High Positive The antiphospholipid antibody syndrome (APS) is a clinical-pathologic correlation that includes a clinical event (e.g. thrombosis, loss, thrombocytopenia) and persistent positive antiphospholipid antibodies (IgM or IgG AGUSTIN >40 MPL/GPL, IgM or IgG anti-b2GPI antibodies or a lupus anticoagulant). The IgA isotype has been implicated in smaller studies, but have not yet been incorporated into the APS criteria. International consensus guidelines suggest waiting at least 12 weeks before retesting to confirm antibody persistence. Reference J Thromb Haemost 2006: 4; 295 4 FACTOR V LEIDEN (R506Q) MUTATION NOT DETECTED 5 This individual is negative (normal) for the Factor V Leiden (R506Q) mutation in the Factor V gene. Increased risk of thrombophilia can be caused by a variety of genetic and non-genetic factors not screened for by this assay. 6 Lucian King, Ph.D., [facility] Director, Molecular Genetics SUPPLEMENTAL INFORMATION The Factor V Leiden (R506Q) mutation [NM_000130.2:c. 1601G>A (p.R534Q)] in the Factor V gene is one of the most common causes of inherited thrombophilia. This mutation causes resistance to degradation of activated Factor V protein by activated Protein C (APC). The Factor V Leiden (R506Q) mutation is detected by amplification of the selected region of Factor V gene by polymerase chain reaction (PCR) and fluorescent probe hybridization to the targeted region, followed by melting curve analysis with a real time PCR system. Although rare, false positive or false negative results may occur. All results should be interpreted in context of clinical findings, relevant history, and other laboratory data. Health care providers, please contact your local [facility] genetic counselor or call [email or web address] ([phone]) for assistance with interpretation of these results. This test was developed and its analytical performance characteristics have been determined by [facility], [place], [place]. It has not been cleared or approved by the U.S. Food and Drug Administration. This assay has been validated pursuant to the CLIA regulations and is used for clinical purposes. 7 THE Y10081E MUTATION NOT DETECTED 8 This individual is negative (normal) for the E52482V mutation in the Prothrombin/Factor II gene. Increased risk of thrombophilia can be caused by a variety of genetic and non-genetic factors not screened for by this assay. 9 Lucian King, Ph.D., [facility] Director, Molecular Genetics SUPPLEMENTAL INFORMATION The W07164F mutation [XL236353.1:g.22797W>A (c.*97G>A)] in the Prothrombin/Factor II gene is the second most common inherited risk factor for thrombosis occurring in approximately 2% of Caucasians. Presence of the mutation is associated with an elevation of prothrombin levels to about 30% above normal in heterozygotes and to 70% above normal in homozygotes. The E14842K mutation is detected by amplification of the selected region of Factor II gene by polymerase chain reaction (PCR) and fluorescent probe hybridization to the targeted region, followed by melting curve analysis with a real time PCR system. Although rare, false positive or false negative results may occur. All results should be interpreted in context of clinical findings, relevant history, and other laboratory data. Health care providers, please contact your local [facility] genetic counselor or call [email or web address] ([phone]) for assistance with interpretation of these results. This test was developed and its analytical performance characteristics have been determined by [facility] [place], [place]. It has not been cleared or approved by the U.S. Food and Drug Administration. This assay has been validated pursuant to the CLIA regulations and is used for clinical purposes. 10 POSITIVE FOR ONE COPY OF THE C677T VARIANT 11 This individual is heterozygous for the C677T variant and negative (normal) for the G7676T variant in the MTHFR gene. This result is not associated with a significantly increased risk for coronary artery disease, venous thromboembolism, or adverse outcome. 12 Yanick Ortiz, Ph.D., [facility] Director, Molecular Genetics Reduced methylenetetrahydrofolate reductase (MTHFR) enzyme activity is a genetic risk factor for hyperhomocysteinemia, especially when present with low serum folate levels. Two common variants in the MTHFR gene result in reduced enzyme activity. The "thermolabile" variant C677T [NM 798846.3:c.665C>T (p.A222V)] and F8338P [c.1286A>C (p.E429A)] occur frequently in the general population. Mild to moderate hyperhomocysteinemia has been identified as a risk factor for coronary artery disease and venous thromboembolism. Hyperhomocysteinemia is multifactorial, involving a combination of genetic, physiologic and environmental factors. Recent studies do not support the previously described association of increased risk for coronary artery disease and venous thromboembolism with mild hyperhomocysteinemia caused by reduced MTHFR activity. Therefore, the utility of MTHFR variant testing is uncertain and is not recommended by [employer] [place] [employer] ([employer]) or the [place] [employer] (ACOG) in the evaluation of venous thromboembolism or adverse outcome. Modest positive association has also been found between the "thermolabile" variant of the MTHFR gene and many other medical complications, such as recurrent loss, risk of offspring with neural tube defects, neuropsychiatric disease, and chemotherapy toxicity. Increased risk of coronary artery disease, venous thromboembolism and increased plasma homocysteine can be caused by a variety of genetic and non-genetic factors not screened for by this assay. If indicated by personal or family history of thromboembolism, consider additional testing such as plasma homcysteine levels, factor V Leiden and prothrombin gene mutations. The C677T and J2594O variants are detected by amplification of the selected regions of MTHFR gene by polymerase chain reaction (PCR) and fluorescent probes hybridization to the targeted regions, followed by melting curve analysis with a real time PCR system. Although rare, false positive or false negative results may occur. All results should be interpreted in context of clinical findings, relevant history, and other laboratory data. Health care providers, please contact your local [facility] genetic counselor or call [email or web address] ([phone]) for assistance with interpretation of these results. This test was developed and its analytical performance characteristics have been determined by [facility], [place], [place]. It has not been cleared or approved by the U.S. Food and Drug Administration. This assay has been validated pursuant to the CLIA regulations and is used for clinical purposes. 13 A Lupus Anticoagulant is not detected. Reference Range: Not Detected http://education.Skemaz/faq/LupusAnticoag This interpretation is based on the following test results. 14 The "corrected" mixing study pattern is most commonly associated with a Factor(s) deficiency- often acquired due to anticoagulant therapy. This suggests that the positive dRVVT Confirm is a false positive. Clinical correlation is required. 15 REFERRAL LAB REPORT TO FOLLOW 16 Decreased levels of Protein S activity may be found in patients with hereditary deficiency, warfarin therapy, vitamin K deficiency, liver disease, DIC, or recent thrombosis as well as after surgery. In addition, it may be physiologic in . 17 Therapeutic target for the treatment of diabetes mellitus patients is <7% HBA1C, and in selective patients <6.0%. Please refer to [place] [employer] Association diabetic care guidelines for further information. 18 [id number] 19 Warning: A positive result is not useful for establishing a diagnosis of syphilis. In most situations, such a result may reflect a prior treated infection; a negative result can exclude a diagnosis of syphilis except for incubating or early primary disease. 20 It is recognized that currently available assays for the detection of antibodies to HIV-1 and/or HIV-2 may not detect all infected individuals. HIV antibodies may be undetectable in some stages of the infection and in some clinical conditions. The performance of this assay has not been established for populations of infants or children. Assayed by Chemiluminescence Microparticle Immunoassay on the Siemens Advia Centaur CP. Values obtained with different methods or kits cannot be used interchangeably.The diagnostic specificity of the AD[employer] Centaur 1/O/2 Enhanced assay in the low risk population was 99.90% (6052/6058) with a 95% confidence interval of 99.78 to 99.96%. 21 ADDITIONAL INFORMATION Testing performed by Inductively Coupled Plasma-Mass Spectrometry (ICP-MS). This test was developed and its performance characteristics determined by [facility] in a manner consistent with CLIA requirements. This test has not been cleared or approved by the U.S. Food and Drug Administration. 22 Test Performed by: [facility] [place] [employer] [address] [place] [address] 23 REFERENCE VALUE <=9 IU/mL (Negative) 10-11 IU/mL (Equivocal) >=12 IU/mL (Positive) Test Performed by: [facility] [place] [employer] [place] [address] 24 No IgM antibodies to T. gondii detected. Results may be negative in patients with recent infection or who are significantly immunosuppressed. 25 SEE RESULT BELOW Name: IZA BYRD : [address]: Kelle Sanchez [facility] Acct: [id number] Unit: [id number] AGE: 22 Location: [facility] Re12/17/17 SEX: F Status: REG REF SPEC: [id number] MILAD: 12/17/[address]: Kelle Sanchez [facility] REQ: [id number] RECD: 12/17/17 STATUS: COMP _ SOURCE: URINE SPDESC: ORDERED: Urine Culture COMMENTS: [id number] Urine Source: Random Procedure Result Reported Site Urine Culture Final 12/18/17- 1343 ML No Growth (<1,000 CFU/mL) * ML - Main Lab . END OF REPORT DEPARTMENT OF PATHOLOGY, [address] [place] [address] Cortes Garcias M.D. Director [facility] # [id number] Procedures Date Code Description Status 12/17/2017 62704 OB Ultrasound First Trimester Completed 02/10/2016 30926 Injection Intramuscular Or Subcutaneous Completed 11/11/2015 89520 Injection Intramuscular Or Subcutaneous Completed 08/12/2015 18866 Injection Intramuscular Or Subcutaneous Completed 05/20/2015 27456 Injection Intramuscular Or Subcutaneous Completed 02/17/2015 63125 Injection Intramuscular Or Subcutaneous Completed 11/19/2014 25588 Injection Intramuscular Or Subcutaneous Completed 09/03/2014 87429 Injection Intramuscular Or Subcutaneous Completed Encounters Type Date Location Provider Dx Diagnosis Office Visit 01/04/2016 [facility] Gemini Goodson NP Z30.42 Encounter for 3:30p surveillance of injectable contraceptive Office Visit 08/30/2014 [facility] Gemini Goodson NP V25.8 Contraceptive 2:00p Management Spec Other Plan of Treatment Future Appointment(s):01/21/2018 11:15 am - Ultrasounds at [facility]2017 11:30 am - Laboratory at [facility]02/25/2018 10:45 am - Linda Harris MD at [facility]
[2018-01-27 11:00] VITALS: BP 138/85
--- NOTE | 2018-01-27 11:56 | UC ---
Throat Pain/Nasal Med HPI - HPI Summary HPI Summary: 22 yo female presents with "white spots" and sore throat since last night. Feels better this morning. She has not taken anything OTC for her symptoms. She is currently . Denies fever, chills, cough, abdominal pain, vaginal bleeding. - History of Current Complaint Chief Complaint: UCGeneralIllness Stated Complaint: SORE THROAT Time Seen by Provider: 01/27/18 11:40 Hx Obtained From: Patient Hx Last Menstrual Period: preg Onset/Duration: Sudden Onset Severity: Mild Pain Intensity: 2 Pain Scale Used: 0-10 Numeric - Allergies/Home Medications Allergies/Adverse Reactions: Allergies Allergy/AdvReac Type Severity Reaction Status Date / Time No Known Allergies Allergy Verified 09/08/17 11:59 Home Medications: Home Medications Enoxaparin Sodium [Lovenox] 40 mg IM DAILY 01/27/18 [History Confirmed 01/27/18] Venlafaxine HCl [Venlafaxine HCl ER] 75 mg PO DAILY 01/27/18 [History Confirmed 01/27/18] PMH/Surg Hx/FS Hx/Imm Hx Psychological History: Anxiety, Depression Other History Of: Negative For: Anticoagulant Therapy - Surgical History Surgical History: None - Family History Known Family History: Positive: Blood Disorder - blood clots Negative: Cardiac Disease, Hypertension, Diabetes - Social History Lives: With Family Alcohol Use: None Substance Use Type: None Smoking Status (MU): Former Smoker Type: Cigarettes Amount Used/How Often: 1/2 -1 ppd Length of Time of Smoking/Using Tobacco: since age 18 Have You Smoked in the Last Year: Yes - Immunization History Vaccination Up to Date: Yes Review of Systems All Other Systems Reviewed And Are Negative: Yes Constitutional: Positive: Negative Skin: Positive: Negative Eyes: Positive: Negative ENT: Positive: Sore Throat Respiratory: Positive: Negative Cardiovascular: Positive: Negative Gastrointestinal: Positive: Negative Genitourinary: Positive: Negative Neurovascular: Positive: Negative Neurological: Positive: Negative Psychological: Positive: Negative Physical Exam - Summary Physical Exam Summary: GENERAL: NAD. WDWN. No pain distress. SKIN: No rashes, sores, lesions, or open wounds. HEENT: Head: AT/NC Eyes: Conjunctiva clear without inflammation or discharge. Ears: Hearing grossly normal. TMs intact, no bulging, erythema, or edema. Nose: Nasal mucosa pink and moist. NTTP maxillary and frontal sinus. Throat: Posterior oropharynx without erythema. Single 1mm diameter white blister on soft palate. No exudates. Uvula midline. No hoarse voice or muffled voice. NECK: Supple. Nontender. No lymphadenopathy. CHEST: CTAB. No r/r/w. No accessory muscle use. Breathing comfortably and in no distress. CV: RRR. Without m/r/g. Pulses intact. Cap refill <2seconds NEURO: Alert. PSYCH: Age appropriate behavior. Triage Information Reviewed: Yes Vital Signs: Initial Vital Signs Temp 98 F 01/27/18 10:58 Pulse 110 01/27/18 10:58 Resp 18 01/27/18 10:58 BP 138/85 01/27/18 10:58 Pulse Ox 99 01/27/18 10:58 Laboratory Tests 01/27/18 11:44 Group A Strep Rapid Negative Vital Signs Reviewed: Yes Throat Pain/Nasal Course/Dx - Course Course Of Treatment: POC strep negative. Suspect viral illness. Advised to monitor symptoms and f/u if symptoms worsen or persist. - Differential Dx/Diagnosis Provider Diagnosis: Pharyngitis Discharge - Sign-Out/Discharge Documenting (check all that apply): Patient Departure All imaging exams completed and their final reports reviewed: No Studies - Discharge Plan Condition: Stable Disposition: HOME Patient Education Materials: Pharyngitis (ED) Referrals: Angela Solis [Primary Care Provider] - Additional Instructions: If you develop a fever, shortness of breath, chest pain, new or worsening symptoms - please call your PCP or go to the ED. - Billing Disposition and Condition Condition: STABLE Disposition: Home
== END 2018-01-27 12:05 | disposition home or self-care (01) ==
LOC: UCEAST 10:46
DX: J02.9 Acute pharyngitis, unspecified (principal); O26.899 Other specified pregnancy related conditions, unspecified trimester; Z3A.00 Weeks of gestation of pregnancy not specified; Z87.891 Personal history of nicotine dependence
CPT/HCPCS: 87651; 99211; G0463

== ENCOUNTER 2018-02-17 15:06 | Emergency (ER) | payer OTHER ==
[2018-02-17 15:40] VITALS: BP 145/93
--- NOTE | 2018-02-17 15:44 | UC ---
Throat Pain/Nasal Med HPI - HPI Summary HPI Summary: 22 yo female presents with continued sore throat. I initially saw pt about 3 weeks ago for same issue. Rapid strep was negative at that time and she thought her symptoms were improving. Today, however, she tells me that her sore throat has been persistent and over the last 2-3 days has been more painful. She is able to eat and drink without difficulty. Denies fever, chills, cough, SOB, chest pain, abdominal pain, vaginal bleeding/discharge. Currently 17 weeks - History of Current Complaint Chief Complaint: UCGeneralIllness Stated Complaint: SORE THROAT Time Seen by Provider: 02/17/18 15:43 Hx Obtained From: Patient Hx Last Menstrual Period: 17 weeks 4 days Onset/Duration: Gradual Onset Severity: Moderate Pain Intensity: 5 Pain Scale Used: 0-10 Numeric - Allergies/Home Medications Allergies/Adverse Reactions: Allergies Allergy/AdvReac Type Severity Reaction Status Date / Time No Known Allergies Allergy Verified 02/17/18 15:40 PMH/Surg Hx/FS Hx/Imm Hx Psychological History: Anxiety, Depression Other History Of: Negative For: Anticoagulant Therapy - Surgical History Surgical History: None - Family History Known Family History: Positive: Blood Disorder - blood clots Negative: Cardiac Disease, Hypertension, Diabetes - Social History Lives: With Family Alcohol Use: None Substance Use Type: None Smoking Status (MU): Former Smoker Type: Cigarettes Amount Used/How Often: 1/2 -1 ppd Length of Time of Smoking/Using Tobacco: since age 18 Have You Smoked in the Last Year: Yes - Immunization History Vaccination Up to Date: Yes Review of Systems All Other Systems Reviewed And Are Negative: Yes Constitutional: Positive: Negative Skin: Positive: Negative Eyes: Positive: Negative ENT: Positive: Sore Throat Respiratory: Positive: Negative Cardiovascular: Positive: Negative Gastrointestinal: Positive: Negative Neurovascular: Positive: Negative Neurological: Positive: Negative Psychological: Positive: Negative Physical Exam - Summary Physical Exam Summary: GENERAL: NAD. WDWN. No pain distress. SKIN: No rashes, sores, lesions, or open wounds. HEENT: Head: AT/NC Eyes: Conjunctiva clear without inflammation or discharge. Ears: Hearing grossly normal. TMs intact, no bulging, erythema, or edema. Nose: Nasal mucosa pink and moist. NTTP maxillary and frontal sinus. Throat: Posterior oropharynx mild erythema. No tonsillar enlargement. No exudates. Uvula midline. No hoarse voice or muffled voice. NECK: Supple. Nontender. No lymphadenopathy. CHEST: CTAB. No r/r/w. No accessory muscle use. Breathing comfortably and in no distress. CV: RRR. Without m/r/g. Pulses intact. Cap refill <2seconds NEURO: Alert. PSYCH: Age appropriate behavior. Triage Information Reviewed: Yes Vital Signs: Initial Vital Signs Temp 98.1 F 02/17/18 15:36 Pulse 120 02/17/18 15:36 Resp 16 02/17/18 15:36 BP 145/93 02/17/18 15:36 Pulse Ox 100 02/17/18 15:36 Vital Signs Reviewed: Yes Throat Pain/Nasal Course/Dx - Course Course Of Treatment: Given her length of symptoms will treat with anbx and advise her to f/u with her OBGYN. - Differential Dx/Diagnosis Provider Diagnosis: Pharyngitis Discharge - Sign-Out/Discharge Documenting (check all that apply): Patient Departure All imaging exams completed and their final reports reviewed: No Studies - Discharge Plan Condition: Stable Disposition: HOME Prescriptions: Amoxicillin PO (*) [Amoxicillin 500 MG CAP*] 500 mg PO Q12H #14 cap Patient Education Materials: Pharyngitis (ED) Referrals: Angela Solis [Primary Care Provider] - Additional Instructions: If you develop a fever, shortness of breath, chest pain, new or worsening symptoms - please call your PCP or go to the ED. Your blood pressure was high at todays visit. Please see your primary provider within 4 weeks for recheck and re-evaluation. - Billing Disposition and Condition Condition: STABLE Disposition: Home
== END 2018-02-17 15:57 | disposition home or self-care (01) ==
LOC: UCEAST 15:06
DX: O99.512 Diseases of the respiratory system complicating pregnancy, second trimester (principal); J02.9 Acute pharyngitis, unspecified; Z3A.17 17 weeks gestation of pregnancy; Z87.891 Personal history of nicotine dependence
CPT/HCPCS: 99212; G0463

== ENCOUNTER 2018-06-05 23:41 | Emergency (ER) | payer OTHER ==
[2018-06-06] MEDS ORDERED: NS 0.9% 1000 ML** 1,000 ML IV ONE (00:23)
--- NOTE | 2018-06-06 00:26 | ED ---
HPI Chest Pain - HPI Summary HPI Summary: This patient is a 23 year old F presenting to [facility] with a chief complaint of left anterior chest pain since 09:00. The patient is 33 weeks with her 1st . The patient rates the pain 6/10 in severity. Symptoms aggravated by deep breaths and movement. Symptoms alleviated by nothing. Patient reports intermittent SOB with exertion and cough. Patient denies fever. Patient has hx of DVT/PE and anxiety. The patient takes Lovenox. Patient denies neck pain or swelling. - History of Current Complaint Chief Complaint: EDShortnessOfBreath Time Seen by Provider: 06/06/18 00:08 Hx Obtained From: Patient Hx Last Menstrual Period: 17 weeks 4 days Onset/Duration: Started Hours Ago, Atraumatic, Still Present Timing: Constant Initial Severity: Mild Current Severity: Mild Pain Intensity: 6 Pain Scale Used: 0-10 Numeric Chest Pain Location: Left Anterior Chest Pain Radiates: No Aggravating Factor(s): Movement, Deep Breaths Alleviating Factor(s): Nothing Associated Signs and Symptoms: Positive: Chest Pain - left anterior, Shortness of Breath - intermittent, Cough - Allergy/Home Medications Allergies/Adverse Reactions: Allergies Allergy/AdvReac Type Severity Reaction Status Date / Time No Known Allergies Allergy Verified 06/05/18 23:53 PMH/Surg Hx/FS Hx/Imm Hx Endocrine/Hematology History: Denies: Hx Anticoagulant Therapy, Hx Diabetes Cardiovascular History: Reports: Hx Deep Vein Thrombosis Denies: Hx Congenital Heart Disease, Hx Hypertension Respiratory History: Reports: Hx Pulmonary Embolism Denies: Hx Pleural Effusion GI History: Denies: Hx Crohn's Disease History: Denies: Hx Renal Disease Musculoskeletal History: Denies: Hx Gout, Hx Scoliosis Sensory History: Reports: Hx Contacts or Glasses Denies: Hx Hearing Aid Opthamlomology History: Reports: Hx Contacts or Glasses Neurological History: Denies: Hx Headaches Infectious Disease History: No Infectious Disease History: Denies: Traveled Outside the [place] in Last 30 Days - Family History Known Family History: Positive: Blood Disorder - blood clots Negative: Cardiac Disease, Hypertension, Diabetes - Social History Alcohol Use: None Substance Use Type: Reports: None Smoking Status (MU): Former Smoker Type: Cigarettes Amount Used/How Often: 1/2 -1 ppd Length of Time of Smoking/Using Tobacco: since age 18 Have You Smoked in the Last Year: Yes Review of Systems Negative: Fever Negative: Epistaxis Positive: Chest Pain Positive: Shortness Of Breath, Cough Musculoskeletal: Other - negative neck pain or swelling All Other Systems Reviewed And Are Negative: Yes Physical Exam - Summary Physical Exam Summary: VITAL SIGNS: Reviewed. GENERAL: Patient is a well-developed and nourished FEMALE who is lying comfortable in the stretcher. Patient is not in any acute respiratory distress. HEAD AND FACE: No signs of trauma. No ecchymosis, hematomas or skull depressions. No sinus tenderness. EYES: PERRLA, EOMI x 2, No injected conjunctiva, no nystagmus. EARS: Hearing grossly intact. Ear canals and tympanic membranes are within normal limits. MOUTH: Oropharynx within normal limits. NECK: Supple, trachea is midline, no adenopathy, no JVD, no carotid bruit, no c- spine tenderness, neck with full ROM. NO neck pain or swelling. CHEST: Symmetric, no tenderness at palpation LUNGS: Clear to auscultation bilaterally. No wheezing or crackles. CVS: Regular rhythm, mild tachycardia between 105 and 110 bpm, S1 and S2 present , no murmurs or gallops appreciated. ABDOMEN: Soft, non-tender. No signs of distention. No rebound no guarding, and no masses palpated. Bowel sounds are normal. Fundal level at thirty-four weeks EXTREMITIES: FROM in all major joints, no edema, no cyanosis or clubbing. NEURO: Alert and oriented x 3. No acute neurological deficits. Speech is normal and follows commands. SKIN: Dry and warm Triage Information Reviewed: Yes Vital Signs On Initial Exam: Initial Vitals Temp Pulse Resp BP Pulse Ox 98.2 F 105 16 138/101 99 06/05/18 23:48 06/05/18 23:48 06/05/18 23:48 06/05/18 23:48 06/05/18 23:48 Vital Signs Reviewed: Yes Diagnostics - Vital Signs Vital Signs Temp Pulse Resp BP Pulse Ox 06/06/18 00:10 111 23 114/98 98 06/05/18 23:48 98.2 F 105 16 138/101 99 - Laboratory Result Diagrams: 06/06/18 00:39 06/06/18 00:39 Lab Statement: Any lab studies that have been ordered have been reviewed, and results considered in the medical decision making process. - Radiology CXR Radiology Interpretation Completed By: ED Physician - Dr. Sunshine, pending official report Summary of Radiographic Findings: negative - EKG 00:01 Cardiac Rate: NL - at [address] Segment: Non-Specific - T wave changes in inferior leads Summary of EKG Findings: sinus rhythm at 99 bpm with nml axis, nml interval, and non-specific T-wave changes in inferior leads. Chest Pain Course/Dx - Course Course Of Treatment: This patient is a 23 year old F 33 weeks presenting to [facility] with a chief complaint of left anterior chest pain since 09: 00. Symptoms aggravated by deep breaths and movement. Patient reports intermittent SOB with exertion and cough. Patient denies fever, neck pain or swelling. An EKG reveals sinus rhythm at 99 bpm with nml axis, nml interval, and non-specific T-wave changes in inferior leads. CXR reveals, per ED physician , negative. ED physician has reviewed this radiology report. Patient has d- dimer less than 200. Patient EBG is consistent with hyper-respiration and respiratory acidosis. Symptoms most likely due to anxiety. Reviewed lab, imaging , and UA results with patient. Patient will be discharged home with follow up from PCP. The patient is agreeable with this plan. Dx anxiety. - Diagnoses Provider Diagnoses: Anxiety Discharge - Sign-Out/Discharge Documenting (check all that apply): Patient Departure - discharge home Patient Received Moderate/Deep Sedation with Procedure: No - Discharge Plan Condition: Stable Disposition: HOME Patient Education Materials: Anxiety (ED) Referrals: Angela Solis [Primary Care Provider] - 1 Day Additional Instructions: Follow up with primary care physician in 1-2 days. Return to the emergency department with any new or worsening symptoms. - Attestation Statements Document Initiated by Scribe: Yes Documenting Scribe: Cande Alas Provider For Whom Dionneibe is Documenting (Include Credential): Lisbeth Sunshine MD Scribe Attestation: Cande Chatman, dionneibed for Lisbeth Sunshine MD on 06/06/18 at 0158. Status of Scribe Document: Ready
[2018-06-06] MEDS ORDERED: Levofloxacin 750 MG IVPREMIX(* 750 MG/150 ML BAG IVPB ONE (00:36)
[2018-06-06 00:48] LABS: Hematocrit 34 % (33-41); Hemoglobin 10.8 g/dL (12.0-16.0); Red Blood Count 4.52 10^6 /uL (3.70-4.87); White Blood Count 14.1 10^3/uL (3.5-10.8)
[2018-06-06 00:51] LABS: Mean Platelet Volume 7.3 fL (7.4-10.4); Platelet Count 391 10^3/uL (150-450)
[2018-06-06 00:55] LABS: Activated Partial Thrombo Time 28.9 seconds (26.0-36.3); INR 0.94 (0.77-1.02)
[2018-06-06] MEDS ORDERED: Lactated Ringers 1000 ML Bag* 1,000 ML IV SCH (01:00)
[2018-06-06 01:11] LABS: Albumin 3.3 g/dL (3.2-5.2); Albumin/Globulin Ratio 1.1 (1-3); BUN/Creatinine Ratio 14.9 (8-20); Calcium 9.1 mg/dL (8.6-10.3); EGFR African American 202.4 (>60); EGFR Non-African American 167.3 (>60); Globulin 3.1 g/dL (2-4); Magnesium 1.8 mg/dL (1.9-2.7); Potassium 3.6 mmol/L (3.5-5.0); Total Bilirubin 0.6 mg/dL (0.2-1.0); Total Protein 6.4 g/dL (6.4-8.9)
[2018-06-06 01:17] LABS: ABS Basophils 0.1 10^3/ul (0-0.2); ABS Eosinophils 0.1 10^3/ul (0-0.6); ABS Lymphocytes 3.4 10^3/ul (1.0-4.8); ABS Monocytes 1.1 10^3/ul (0-0.8); ABS Neutrophils 9.4 10^3/ul (1.5-7.7); ABS Nucleated RBC 0 10^3/ul; Eosinophil % 0.7 %; Lymphocyte % 24.3 %; Mean Corpuscular HGB Conc 32 g/dL (31-36); Mean Corpuscular Hemoglobin 24 pg (27-31); Mean Corpuscular Volume 74 fL (80-97); Nucleated Red Blood Cells % 0.1; Red Cell Distribution Width 17 % (10.5-15)
[2018-06-06 02:12] VITALS: BP 111/70
== END 2018-06-06 02:00 | disposition home or self-care (01) ==
LOC: ED 23:41
DX: O26.93 Pregnancy related conditions, unspecified, third trimester (principal); O99.333 Smoking (tobacco) complicating pregnancy, third trimester; R94.31 Abnormal electrocardiogram [ECG] [EKG]; F41.9 Anxiety disorder, unspecified; F17.210 Nicotine dependence, cigarettes, uncomplicated; Z3A.33 33 weeks gestation of pregnancy; Z86.718 Personal history of other venous thrombosis and embolism; Z86.711 Personal history of pulmonary embolism
CPT/HCPCS: 36415; 71045; 80053; 82803; 83735; 83880; 84484; 85025; 85379; 85610; 85730; 93005; 96361; 96365; 99282

== ENCOUNTER 2018-07-18 07:58 | Inpatient (IN) | payer MEDICAID, OTHER ==
[2018-07-18] MEDS ORDERED: Dinoprostone* 10 MG VAG.SUPP VAGINAL STA (09:27)
--- NOTE | 2018-07-18 09:38 | PN ---
L&D Outpatient: Visit - Reproductive Information Estimated Due Date: 07/25/18 Gestational Age: 39 Weeks and 0 Days : 1 Para: 0 - Reason for Visit Visit Reason: Pt presents at 39 wks for cervical ripening. complicated by h/o PE while on BC and smoking heavily. She has been on Lovenox (until 36 wks) and has been on Heparin 5000U BID since then. Last dose last night. No complaints today. - Antepartal Records Antepartal Record: Reviewed, Complicated by: - see above Review of Systems Constitutional: Comfortable CV Complaint: No Respiratory: Shortness of Breath: No Gastrointestinal: No Nausea/Vomiting Genitourinary: No Dysuria, No Bleeding, No Leaking Fluid Musculoskeletal: No Complaint Neurological: No Headache Movement: Normal L&D Outpatient: Exam Vitals - Most Recent: normal, afebrile - Cervical Exam Cervical Exam: closed/60%/-2, soft - Abdominal Exam Abdomen Exam: Non-Tender, Fundal Height Consistent with Dates - Membranes Membrane Status: Intact - Ultrasound/Biophysical Profile Ultrasound Status: Not Done EFM Findings - External Monitor Findings Baseline Heart Rate: 130 External Monitor Findings: Accelerations Present, No Pattern of Variable or Late Decelerations, Variability Moderate, Baseline Stable Contractions: None L&D Outpatient: Asses/Plan Assessment: 39 wks with h/o PE on heparin, here for cervical ripening and labor induction. Very reassuring status. Plan: Continue Observation - Plan cervidil cervical ripening. Will continue heparin if Plt normal (per Dr. Crowley)
[2018-07-18 10:44] LABS: Hematocrit 34 % (35-47); Hemoglobin 10.7 g/dL (12.0-16.0); Mean Corpuscular HGB Conc 32 g/dL (31-36); Mean Corpuscular Hemoglobin 23 pg (27-31); Mean Corpuscular Volume 72 fL (80-97); Mean Platelet Volume 7.9 fL (7.4-10.4); Platelet Count 410 10^3/uL (150-450); Red Blood Count 4.66 10^6 /uL (3.70-4.87); Red Cell Distribution Width 19 % (10.5-15); White Blood Count 10.4 10^3/uL (3.5-10.8)
[2018-07-18] MEDS ORDERED: Heparin VIAL(*) 5000 UNITS/ML VIAL (FIVE THOUSAND) SUBCUT ONE (11:01)
[2018-07-18 11:21] LABS: ABS Lymphocytes 2.4 10^3/ul (1.0-4.8); ABS Monocytes 0.6 10^3/ul (0-0.8); ABS Neutrophils 7.2 10^3/ul (1.5-7.7); Eosinophil % 0.3 %; Lymphocyte % 23.6 %; Nucleated Red Blood Cells % 0.1
[2018-07-18] MEDS ORDERED: Promethazine INJ(RESTRICTED)* 25 MG/ML 1 ML VIAL IV PRN (16:24)
[2018-07-18] MEDS ORDERED: Nalbuphine* 10 MG/ML 1 ML VIAL IV PRN (16:24)
[2018-07-18] MEDS ORDERED: Lactated Ringers 1000 ML Bag* 1,000 ML IV ONE (16:24)
[2018-07-18] MEDS ORDERED: Lactated Ringers 1000 ML Bag* 1,000 ML IV SCH (17:00)
--- NOTE | 2018-07-18 22:48 | HP ---
General Information - Reason for Visit See outpt note. 39wks EGA with h/o PE 2 yrs ago. Has been on Lovenox until a few weeks ago, now heparin 5000U BID. Last dose at about 11:00 this AM. Held tonight as anesthesia advised they would prefer not to do epidural within 4 hrs of a dose. No complaints today. Cervidil just removed after 12 hrs. Changed from closed and soft to 2cm/80%/-2. Received Nubain/Phenergan at about 1830 due to strong cramps but they have since resolved. - General Information Maternal Age: 23 Grav: 1 Para: 0 SAB: 0 IEA: 0 Estimated Due Date: 07/25/18 Determined By: LMP Gestational Age in Weeks/Days: 39+0 Maternal Blood Type and Rh: A Positive - Results this Serology/RPR Result: Non-Reactive Rubella Result: Immune HBsAg Result: Negative HIV Result: Negative GBS Culture Result: Negative Past Medical History Delivery History: See Records - none Pertinent Past Medical History: See Records - h/o PE, anxiety Pertinent Past Surgical History: None - Antepartal Records Antepartal Records: Reviewed, Complicated by: - h/o PE Review of Systems Constitutional: Comfortable CV Complaint: No Respiratory: Shortness of Breath: No Gastrointestinal: No Nausea/Vomiting Genitourinary: No Dysuria, No Bleeding Neurological: No Visual Changes Exam Allergies/Adverse Reactions: Allergies No Known Allergies Allergy (Verified 07/05/18 16:31) VS normal, afebrile Lab Values - Entire Visit: Laboratory Tests 07/18/18 07/18/18 07/18/18 10:20 10:20 17:45 WBC 10.4 RBC 4.66 Hgb 10.7 L Hct 34 L MCV 72 L MCH 23 L MCHC 32 RDW 19 H Plt Count 410 MPV 7.9 Neut % (Auto) 69.6 Lymph % (Auto) 23.6 Hemphill % (Auto) 6.2 Eos % (Auto) 0.3 Baso % (Auto) 0.3 Absolute Neuts (auto) 7.2 Absolute Lymphs (auto) 2.4 Absolute Monos (auto) 0.6 Absolute Eos (auto) 0.0 Absolute Basos (auto) 0.0 Absolute Nucleated RBC 0.0 Nucleated RBC % 0.1 APTT 32.5 Blood Type A Positive Antibody Screen Negative - Measurements Height: 5 ft 5 in Weight: 242 lb Weight in lbs: [id number] Body Mass Index (BMI): 40.2 Pre- Weight: 230 lb Weight Gained This : 12 lbs and 0 ozs - Exam Breast: Breast Exam Deferred Heart: Normal Rhythm/Heart Sounds HEENT: No Significant Findings Lungs: Clear Bilaterally Rectal: Rectal Exam Deferred - Abdominal Exam Abdomen Exam: Non-Tender - Ultrasound/Biophysical Profile Ultrasound Status: Not Done Targeted Exam Findings See L&D Outpatient Visit Provider Note for Findings: Yes Estimated Weight: 7lb 8oz Cervical Exam: 2cm Effacement: 80% Station: -2 Presenting Part: Vertex Membrane Status: Intact Bleeding/Discharge: None EFM Findings - External Monitor Findings Baseline Heart Rate: 130 External Monitor Findings: Accelerations Present, No Pattern of Variable or Late Decelerations, Variability Moderate, Baseline Stable Contractions: Irregular, Mild Assessment/Plan - Assessment 39 wks with h/o PE, cervidil since this AM, just removed. Cervix now reasonably favorable. Very reassuring status. - Obstetrical Risk Factors Obstetrical Risk Factors: Obesity Risk Factors Comment: h/o PE - Plan Plan: Induction Plan Comment: Hold heparin at this point as pt may want epidural tonight. Start pitocin IV for induction now that cervix is favorable. Will give another dose of nubain/phenergan if uncomfortable again later but still not actively laboring. Plan epidural when in labor. Plan discussed at length. - Date/Time of Admission Date of Admission: 07/18/18 Time of Admission: 22:50
[2018-07-18] MEDS ORDERED: Oxytocin in LR* 20 UNITS/1,000 ML BAG IVPB SCH (23:00)
[2018-07-18] MEDS ORDERED: Oxytocin in LR* 20 UNITS/1,000 ML BAG IVPB ONE (23:01)
[2018-07-19] MEDS ORDERED: Nalbuphine* 10 MG/ML 1 ML VIAL IV PRN (00:30)
[2018-07-19] MEDS ORDERED: Promethazine INJ(RESTRICTED)* 25 MG/ML 1 ML VIAL IV PRN (00:30)
[2018-07-19] MEDS ORDERED: OBEPIDURAL* 250 ML EPIDURAL ONE (02:29)
[2018-07-19] MEDS ORDERED: Sodium Citrate/Citric Acid* 15 ML UDC PO PRN (04:02)
[2018-07-19] MEDS ORDERED: EPHEDrine (Pressors)* 50 MG/ML VIAL IV PUSH PRN ×2 (04:02)
[2018-07-19] MEDS ORDERED: Famotidine TAB* 20 MG PO PRN (04:02)
[2018-07-19] MEDS ORDERED: Lactated Ringers 1000 ML Bag* 1,000 ML IV ONE (04:02)
[2018-07-19] MEDS ORDERED: Phenylephrine 40 MCG/ML SYRINGE IV PUSH PRN ×2 (04:02)
[2018-07-19] MEDS ORDERED: Lactated Ringers 1000 ML Bag* 500 ML IV PRN ×2 (04:02)
[2018-07-19] MEDS ORDERED: Lactated Ringers 1000 ML Bag* 1,000 ML IV SCH ×2 (05:00→09:00)
[2018-07-19] MEDS ORDERED: OBEPIDURAL* 250 ML EPIDURAL SCH (05:00)
[2018-07-19] MEDS ORDERED: Witch Hazel PAD* JAR ONE (08:32)
[2018-07-19] MEDS ORDERED: Dibucaine 1% 28.35 GM TUBE ONE (08:32)
[2018-07-19] MEDS ORDERED: Witch Hazel PAD* JAR TOPICAL PRN (08:40)
[2018-07-19] MEDS ORDERED: Acetaminophen TAB* 325 MG PO PRN (08:40)
[2018-07-19] MEDS ORDERED: Ibuprofen TAB* 600 MG PO PRN (08:40)
[2018-07-19] MEDS ORDERED: Glycerin ADULT SUPP PR PRN (08:40)
[2018-07-19] MEDS ORDERED: Dibucaine 1% 28.35 GM TUBE PR PRN (08:40)
[2018-07-19] MEDS ORDERED: Varicella Virus Vaccine Live* 0.5 ML VIAL SUBCUT ONE (08:40)
[2018-07-19] MEDS ORDERED: Oxytocin in LR* 20 UNITS/1,000 ML BAG IVPB SCH (09:00)
[2018-07-19] MEDS: Enoxaparin(*) 40 MG/0.4 ML SYR SUBCUT SCH (10:55)
[2018-07-19] MEDS ORDERED: Simethicone TAB* 80 MG TAB.CHEW PO SCH (12:30)
[2018-07-19] MEDS: Docusate CAP* 100 MG PO SCH ×2 (14:56→21:16)
[2018-07-19] MEDS ORDERED: Ketorolac INJ* 30 MG/ML 1 ML VIAL IV PUSH PRN (18:57)
[2018-07-19] MEDS ORDERED: Famotidine IV* 10 MG/ML 2 ML (20 mg) IV SLOW PU ONE (18:58)
[2018-07-19] MEDS ORDERED: Ondansetron INJ* 2 MG/ML VIAL IV PRN (18:59)
[2018-07-20 07:40] LABS: ABS Eosinophils 0.1 10^3/ul (0-0.6); ABS Lymphocytes 3.5 10^3/ul (1.0-4.8); ABS Neutrophils 8.4 10^3/ul (1.5-7.7); Eosinophil % 0.8 %; Hematocrit 29 % (35-47); Hemoglobin 9.3 g/dL (12.0-16.0); Lymphocyte % 26.7 %; Mean Corpuscular HGB Conc 32 g/dL (31-36); Mean Corpuscular Hemoglobin 23 pg (27-31); Mean Corpuscular Volume 73 fL (80-97); Mean Platelet Volume 7.6 fL (7.4-10.4); Nucleated Red Blood Cells % 0.1; Platelet Count 330 10^3/uL (150-450); Red Blood Count 4.05 10^6 /uL (3.70-4.87); Red Cell Distribution Width 19 % (10.5-15); White Blood Count 13.1 10^3/uL (3.5-10.8)
[2018-07-20] MEDS: Ferrous Gluconate TAB* 324 MG TAB PO SCH ×2 (09:08→21:13)
[2018-07-20] MEDS: Docusate CAP* 100 MG PO SCH ×3 (09:09→21:13)
[2018-07-20] MEDS: Enoxaparin(*) 40 MG/0.4 ML SYR SUBCUT SCH (09:09)
[2018-07-21 08:39] VITALS: BP 115/74
[2018-07-21] MEDS: Ferrous Gluconate TAB* 324 MG TAB PO SCH (09:21)
[2018-07-21] MEDS: Docusate CAP* 100 MG PO SCH (09:21)
[2018-07-21] MEDS: Enoxaparin(*) 40 MG/0.4 ML SYR SUBCUT SCH (09:22)
== END 2018-07-21 13:31 | disposition home or self-care (01) | DRG 560 ==
LOC: MCHOBOUT 07:58 → MCHOB 16:27
PROVIDERS: ADMIT Obstetrics & Gynecology; ATTEND Obstetrics & Gynecology
PROC: 10E0XZZ Delivery of Products of Conception, External Approach (ICD-10-PCS; principal; 2018-07-19)
PROC: 3E033VJ Introduction of Other Hormone into Peripheral Vein, Percutaneous Approach (ICD-10-PCS; 2018-07-19)
PROC: 0HQ9XZZ Repair Perineum Skin, External Approach (ICD-10-PCS; 2018-07-19)
DX: O99.214 Obesity complicating childbirth (principal); Z37.0 Single live birth; O99.344 Other mental disorders complicating childbirth; F41.0 Panic disorder [episodic paroxysmal anxiety]; O70.0 First degree perineal laceration during delivery; O99.334 Smoking (tobacco) complicating childbirth; F17.210 Nicotine dependence, cigarettes, uncomplicated; O90.81 Anemia of the puerperium; D64.9 Anemia, unspecified; Z3A.39 39 weeks gestation of pregnancy; Z86.711 Personal history of pulmonary embolism; Z79.01 Long term (current) use of anticoagulants
CPT/HCPCS: 36415; 85025; 85730; 86850; 86900; 86901; A9270-GY; J1644; J1650; J1885; J2300; J2405; J2550

== ENCOUNTER → 2018-10-29 09:48 | Day surgery (SDC) | payer MEDICAID ==
[~2018-10-29 09:48] MED LIST: Acetaminophen IV 1GM/100ML * 100 ML ONE; Atracurium* 10 MG/ML 10 ML VIAL ONE; Buffered Lidocaine 1% SYRIN* 1 ML/SYRINGE INTRADERM ONE; Bupivacaine 0.25% EPI 200,000* 30 ML SDV ONE; Dexamethasone IV* 4 MG/ML 1 ML (4 MG) ONE; Dexamethasone TAB* 4 MG ONE; Dexamethasone TAB* 4 MG PO ONE; DiMENhydriNATE IV* 50 MG/ML VIAL IV PUSH PRN; Famotidine IV* 10 MG/ML 2 ML (20 mg) IV ONE; Famotidine IV* 10 MG/ML 2 ML (20 mg) ONE; Glycopyrrolate IV* 0.2 MG/ML 1 ML VIAL ONE; HYDROmorphone INJ1* 1 MG/ML SYRINGE IV PRN; Heparin VIAL(*) 5000 UNITS/ML VIAL (FIVE THOUSAND) ONE; KETAMINE HCL* 50 MG/ML 10 ML VIAL ONE; Ketorolac INJ* 30 MG/ML 1 ML VIAL ONE; Lactated Ringers 1000 ML Bag* 1,000 ML IV SCH; Lidocaine 2% PF * 5 ML VIAL ONE; Midazolam* 1 MG/ML 5 ML VIAL (5 MG) ONE; Naloxone* 0.4 MG/ML 1 ML VIAL IV PRN; Ondansetron ODT TAB* 4 MG ONE; Ondansetron ODT TAB* 4 MG PO ONE; PROCHLORPERAZINE INJ 5 MG/ML 2 ML VIAL IV PRN; Propofol* 10 MG/ML 20 ML BTL ONE; Scopolamine 1.5 mg* PATCH TRANSDERM PRN; Scopolamine PATCH Remove* 1 NOTE MISC PATCH OFF ONE; ceFAZolin 2 GM in NS PREMIX(*) 2 GM/100 ML BAG IVPB ONE; fentaNYL* 50 MCG/ML 2 ML VIAL (100 MCG VIAL) ONE; oxyCODONE TAB* 5 MG TAB PO PRN
[2018-10-29] MEDS: fentaNYL* 50 MCG/ML 2 ML VIAL (100 MCG VIAL) IV PRN ×3 (13:24→13:56)
[2018-10-29 14:18] VITALS: BP 117/79
--- NOTE | 2018-10-29 23:12 | OP ---
CC: Angela Solis NP * DATE OF OPERATION: 10/29/18 - [facility] DATE OF : 89 PRIMARY CARE PROVIDER: Angela Solis NP SURGEON: Papa Nails MD PRODUCTION ENGINE REPAIRER: Tamara Thompson NP ANESTHESIOLOGIST: Dr. Michaud. ANESTHESIA: General. PRE-OP DIAGNOSIS: Biliary colic, chronic cholecystitis. POST-OP DIAGNOSIS: Biliary colic, chronic cholecystitis. OPERATIVE PROCEDURE: Laparoscopic cholecystectomy. ESTIMATED BLOOD LOSS: Minimal. FLUIDS: Minimal crystalloid fluid given. SPECIMENS: Gallbladder. DRAINS: None. DESCRIPTION OF PROCEDURE: The patient was identified in the preoperative area. She was marked. Consent was signed. She was taken to the operating room and placed on the operating room table in supine position. Preoperative antibiotics were given. Sequential devices were placed on bilateral lower extremities and general anesthesia was induced. The patient's abdomen was prepped and draped in standard surgical fashion. A time-out was performed. Folds of the umbilicus were elevated anteriorly and a Veress needle was attempted to be placed in the abdominal cavity, but we did not feel comfortable with the placement and attention was shifted to the right upper quadrant. An incision was made in the mid clavicular line just two fingerbreadth below the subcostal margin. This was deepened down to the anterior fascia, which was elevated and a Veress needle inserted into the abdominal cavity which was then allowed to insufflate to a pressure of 50 mmHg. Veress needle was removed and a 5 mm optical trocar was inserted. Laparoscope was inserted through this and there was no evidence of injury from the trocar insertion, however, we did notice some air in the omentum. I could not see a violation through the anterior abdominal wall at the umbilicus where we made an attempt to place this. A 5 mm trocar was then inserted through an umbilical incision and we then reviewed the abdomen. Liver was bulky. There was no free fluid. Gallbladder appeared intact. We then placed 2 additional trocars, 12 mm in the subxiphoid area and a 5 mm along the right costal margin. The table was repositioned. Fundus of the gallbladder was elevated anteriorly above the liver. Infundibular region was grasped and retracted towards the right lower quadrant giving us critical view. Dissection was then carried out taking the peritoneum off the lateral aspect of the gallbladder and the medial aspect. Cystic duct which was small was isolated. Cystic artery was also isolated. These were both doubly clipped and ligated and the gallbladder was removed from the liver bed and placed in endoscopic retrieval bag placed over the liver. Reviewed the cystic duct stumps. Cystic artery stump showed no bleeding of bile. Table was repositioned back to neutral and the gallbladder was removed from the subxiphoid port incision site. Trocar was then replaced and review of the abdomen showed no evidence of bleeding. We looked back at the area just under the umbilicus where the Veress needle had been attempted to be placed and there appeared to be no enteric contents, lifting the omentum up. The abdomen was allowed to collapse. Trocars were removed under direct vision. The umbilical incision was reapproximated with 3-0 Chromic suture in a simple fashion and the other incisions were closed with 4-0 Monocryl subcuticular sutures, followed by Steri- Strips and sterile dressing. The patient tolerated the procedure well, was awoken up in the OR and transferred to the PACU in stable condition. [id number]/[facility] #: [id number] MEKA
== END | disposition home or self-care (01) ==
LOC: OR 09:48
PROVIDERS: ATTEND Surgery
DX: K80.10 Calculus of gallbladder with chronic cholecystitis without obstruction (principal); Z87.891 Personal history of nicotine dependence; Z86.711 Personal history of pulmonary embolism; F41.8 Other specified anxiety disorders; F41.9 Anxiety disorder, unspecified
CPT/HCPCS: 81025; 88304; A9270-GY; J0690; J1100; J1644; J1885; J2250; J2704; J3010; J8540

== ENCOUNTER 2024-01-17 07:52 | Inpatient (IN) ==
[2024-01-17] MEDS ORDERED: Buffered Lidocaine 1% SYRIN 1 ml INTRADERM ONE (09:19)
[2024-01-17] MEDS ORDERED: Lidocaine 1% VIAL 10 MG/ML 30 ML VIAL INJ PRN (09:19)
[2024-01-17] MEDS: Lactated Ringers 1000 ml BAG 1,000 ML IV SCH (09:50)
[2024-01-17] MEDS: Oxytocin in LR 20,000 MILLI.UNIT/1,000 ML BAG IV SCH ×2 (09:51→23:49)
[2024-01-17 09:55] LABS: ABS Eosinophils 0.3 10^3/uL (0.0-0.5); ABS Lymphocytes 2.4 10^3/uL (1.0-4.8); ABS Monocytes 0.5 10^3/uL (0.0-0.9); Eosinophil % 2.4 %; Hematocrit 37.3 % (35-45); Hemoglobin 12.3 g/dL (11.5-14.3); Lymphocyte % 19.5 %; Mean Corpuscular Hemoglobin 25.9 pg (27-33); Mean Corpuscular Volume 78.7 fL (80-97); Mean Platelet Volume 7.5 fL (7.5-11.2); Platelet Count 358 10^3/uL (150-450); Red Blood Count 4.75 10^6/uL (3.63-4.92); Red Cell Distribution Width 16.1 % (12-17); White Blood Count 12.3 10^3/uL (3.8-11.8)
[2024-01-17 09:59] LABS: Activated Partial Thrombo Time 30.6 seconds (26.0-38.0); INR 0.98 (0.85-1.14)
[2024-01-17 10:00] LABS: Platelet Count 358 10^3/ul (150-450)
[2024-01-17 10:08] LABS: Urine Benzodiazepine Screen None Detected (None Detect); Urine Cannabinoids Screen None Detected (None Detect); Urine Opiates Screen None Detected (None Detect)
[2024-01-17 10:21] LABS: Schistocytes ABSENT
[2024-01-17] MEDS: Lactated Ringers 1000 ml BAG 1,000 ML IV ONE (14:15)
[2024-01-17] MEDS: OBEPIDURAL (200 ML) 200 ML EPIDURAL ONE (14:25)
[2024-01-17 14:57] LABS: Urine Appearance Clear; Urine Bilirubin Negative (Negative); Urine Blood Negative (Negative); Urine Color Light-Yellow; Urine Glucose Negative (Negative); Urine Ketones Negative (Negative); Urine Nitrite Negative (Negative); Urine Protein Negative (Negative); Urine Urobilinogen Negative (Negative)
[2024-01-17] MEDS ORDERED: Phenylephrine 40 mcg/mL 10mL (400mcg) SYRINGE IV PUSH PRN ×2 (15:13)
[2024-01-17] MEDS ORDERED: Sodium Citrate/Citric Acid LIQ 15 ML UDC PO PRN (15:13)
[2024-01-17] MEDS ORDERED: Lactated Ringers 1000 ml BAG 1,000 ML IV SCH (16:00)
[2024-01-17] MEDS ORDERED: Glycerin ADULT 2.4 gm SUPP PR PRN (21:01)
[2024-01-17] MEDS ORDERED: Lidocaine 2% PF 5 ML VIAL ONE (21:02)
[2024-01-17] MEDS: Lidocaine/Epinephrin 1.5%/200 5 ML AMP INJ ONE (22:25)
[2024-01-17] MEDS: fentaNYL 100 mcg/2 ml 50 MCG/ML VIAL ONE (22:25)
[2024-01-17] MEDS: Lidocaine 1.5% EPI 1:200,000 30 ML SDV ONE (22:26)
[2024-01-17] MEDS: Piperacillin/Tazobac 3.375 BAG 3.375 GM/100 ML BAG IV ONE (22:41)
[2024-01-17] MEDS: Witch Hazel PAD JAR TOPICAL PRN (22:42)
[2024-01-17] MEDS: Dibucaine 1% OINT 28.35 GM TUBE PR PRN (22:42)
[2024-01-18] MEDS: OBEPIDURAL (200 ML) 200 ML EPIDURAL SCH (00:01)
[2024-01-18] MEDS: Lactated Ringers 1000 ml BAG 1,000 ML IV ONE (00:01)
[2024-01-18 08:07] LABS: ABS Basophils 0.1 10^3/uL (0.0-0.1); ABS Eosinophils 0.2 10^3/uL (0.0-0.5); ABS Lymphocytes 3.1 10^3/uL (1.0-4.8); ABS Monocytes 0.7 10^3/uL (0.0-0.9); ABS Neutrophils 9.7 10^3/uL (1.5-7.6); Eosinophil % 1.3 %; Hematocrit 31.1 % (35-45); Hemoglobin 10.5 g/dL (11.5-14.3); Lymphocyte % 22.6 %; Mean Corpuscular Hemoglobin 26.9 pg (27-33); Mean Corpuscular Hgb Conc 33.8 g/dL (31-36); Mean Corpuscular Volume 79.7 fL (80-97); Mean Platelet Volume 7.3 fL (7.5-11.2); Platelet Count 275 10^3/uL (150-450); Red Cell Distribution Width 16.1 % (12-17); White Blood Count 13.8 10^3/uL (3.8-11.8)
[2024-01-18] MEDS: Enoxaparin 60 MG/0.6 ML SYR SUBCUT SCH (12:34)
[2024-01-19 07:34] VITALS: BP 121/71
== END 2024-01-19 12:50 | disposition home or self-care (01) | DRG 541 ==
LOC: MCHOBOUT 07:52 → MCHOB 08:58
PROVIDERS: ADMIT Midwife; ATTEND Midwife